=== PATIENT | male | born 1945 | race Caucasian/White ===

== ENCOUNTER → 2017-05-07 | Outpatient (CLI) | payer OTHER ==
[~2017-05-07] MED LIST: IOPAMIDOL (ISOVUE-300) 100 ML BTL ONE
== END ==
LOC: CIMAGING 10:47
PROVIDERS: ATTEND Specialist
DX: C67.9 Malignant neoplasm of bladder, unspecified (principal); R93.422 Abnormal radiologic findings on diagnostic imaging of left kidney
CPT/HCPCS: 71260-PO; 74177-PO; Q9967

== ENCOUNTER 2017-09-09 05:34 | Inpatient (IN) | payer OTHER ==
[2017-09-09] MEDS ORDERED: cefOXitin SODIUM 2 GM in NS 100 ML IV ONE (05:58)
[2017-09-09] MEDS ORDERED: LIDOCAINE 1% 2 ML INJ ID PRN (06:00)
[2017-09-09] MEDS ORDERED: LR 1,000 ML IV ONE (06:00)
[2017-09-09] MEDS ORDERED: MIDAZOLAM 2 MG/2 ML VIAL IVP ONE (06:59)
--- NOTE | 2017-09-09 06:59 | PDANEPAE ---
ANE History of Present Illness bladder CA ANE Past Medical History - Cardiovascular History Hx Hypertension: Yes Hx Arrhythmias: No Hx Chest Pain: No Hx Coronary Artery / Peripheral Vascular Disease: Yes Hx CHF / Valvular Disease: No Hx Palpitations: No Cardiovascular History Comment: DYSLIPIDEMIA, stent in 2011 - Pulmonary History Hx COPD: No Hx Asthma/Reactive Airway Disease: No Hx Recent Upper Respiratory Infection: No Hx Oxygen in Use at Home: No Hx Sleep Apnea: No Sleep Apnea Screening Result - Last Documented: Positive - Neurologic History Hx Cerebrovascular Accident: No Hx Seizures: No Hx Dementia: No Neurologic History Comment: NEUROPATHY LE - Endocrine History Hx Diabetes: Yes Endocrine History Comment: DM II, on Metformin - Renal History Hx Renal Disorders: Yes Renal History Comment: BLADDER CA, PROSTATE CA - Liver History Hx Hepatic Disorders: No - Neurological & Psychiatric Hx Hx Neurological and Psychiatric Disorders: No - Cancer History Hx Cancer: Yes Cancer History Comment: BLADDER CA (BCG INJ) 2010. PROSTATE CA (TURBT) 2011 - Congenital Disorder History Hx Congenital Disorders: No - GI History GERD: mild Hx Gastrointestinal Disorders: No - Other Health History Other Health History: ED. HEARING LOSS. NASAL DRIP. MISSING TEETH. PSORIASIS - FOOT. TORN ROTATOR CUFF R SHOULDER. ARTHRITIS - Chronic Pain History Chronic Pain: No - Surgical History Prior Surgeries: L3-5 TLIF 2013. LAMINOTOMY 2011. ANGIOPLASTY, CORONARY ARTERY STENT 2011. TURBT 2010. CARPAL TUNNEL RELEASE 2000, 2006. VASECTOMY. ING HERNIA REPAIR 1997 ANE Review of Systems Review of Systems: - Exercise capacity METS (RN): 5 METS ANE Patient History - Allergies Allergies/Adverse Reactions: No Known Allergies Allergy (Verified 09/09/17 06:43) - Home Medications Home medications: home medication list seen and reviewed Home Medications: Aspirin [Aspirin 81mg (OTC)] 81 mg PO DAILY 12/15/12 [Last Taken 08/31/17] Atorvastatin Calcium [Lipitor 20 mg (RX)] 20 mg PO DAILY18 12/15/12 [Last Taken 09/08/17] Bisoprolol Fumarate [Zebeta (RX)] 2.5 mg PO DAILY18 12/15/12 [Last Taken ] Magnesium Oxide [Magnesium Oxide 400 mg (OTC)] 800 mg PO DAILY 12/15/12 [Last Taken 09/06/17] Cholecalciferol Vit D3 [Vitamin D3 2000 units tab (OTC)] 2,000 units PO DAILY [Last Taken 09/06/17] Eszopiclone [Lunesta] 2 mg PO HS 08/20/17 [Last Taken 09/08/17] Lisinopril [Zestril 5 mg (*)] 5 - 10 mg PO DAILY18 08/20/17 [Last Taken 09/08/17 ] Polyethylene Glycol 3350 [Miralax 17 gm (*)] 17 gm PO HS 08/20/17 [Last Taken ] Vardenafil HCl [Levitra] 20 mg PO DAILY PRN 08/20/17 [Last Taken 09/05/17] metFORMIN SR [Glucophage XR 500 mg (*)] 500 mg PO DAILY18 08/20/17 [Last Taken 09/06/17] - NPO status NPO Since - Liquids (Date): 09/08/17 NPO Since - Liquids (Time): 22:00 NPO Since - Solids (Date): 09/08/17 NPO Since - Solids (Time): 12:00 - Smoking Hx Smoking Status: Former smoker - Family Anes Hx Family Hx Anesthesia Complications: NONE ANE Labs/Vital Signs - Vital Signs Blood Pressure: 124/74 Heart Rate: 71 Respiratory Rate: 16 O2 Sat (%): 93 Height: 180.34 cm Weight: 74.843 kg ANE Anesthesia Plan Anesthesia Plan: general endotracheal anesthesia
[2017-09-09] MEDS ORDERED: ONDANSETRON 4 MG/2 ML VIAL ONE (07:04)
[2017-09-09] MEDS ORDERED: LIDOCAINE 2% 5 ML SDV ONE (07:04)
[2017-09-09] MEDS ORDERED: PROPOFOL 200 MG/20 ML VIAL ONE (07:04)
[2017-09-09] MEDS ORDERED: GLYCOPYRROLATE 0.2 MG/1 ML VIAL ONE ×2 (07:04)
[2017-09-09] MEDS ORDERED: NEOSTIGMINE METHYLSULFATE 5 MG/5 ML SYR ONE (07:04)
[2017-09-09] MEDS ORDERED: fentaNYL 100 MCG/2 ML INJ ONE ×4 (07:04→11:38)
[2017-09-09] MEDS ORDERED: ROCURONIUM 50 MG/5 ML VIAL ONE ×2 (07:04→08:15)
[2017-09-09] MEDS ORDERED: MIDAZOLAM 2 MG/2 ML VIAL ONE (07:07)
[2017-09-09] MEDS ORDERED: MITOMYCIN INVES ONE ×2 (07:30→08:00)
--- NOTE | 2017-09-09 07:31 | PDHPUP ---
History & Physical Update H&P update statement: This history and physical update is based on an assessment of the patient which was completed after admission or registration (within 24 hours), but prior to the surgery/procedure. H&P update: no change in patient's condition since H&P completed
[2017-09-09] MEDS ORDERED: BUPIVACAINE/EPI 0.5% 30 ML SDV ONE (07:39)
--- NOTE | 2017-09-09 08:08 | POSTOPPROG ---
Post Op Note Date of Operation: 09/10/17 Surgeon: Heidy Figueroa (# [id number]) Anesthesia: GET(General Endotracheal) Pre-op Diagnosis: Bladder CA Post-op Diagnosis: Bladder CA Procedure: Robotic partial cystectomy + bilateral pelvic lymphadenectomy Findings: See op note Inf/Abcess present in the surg proc area at time of surgery?: No EBL: 50-100 (50 cc) Complications: None Specimen(s): 1. Partial bladder 2. Right & left PLND's
[2017-09-09] MEDS ORDERED: ePHEDrine SULFATE 25 MG/5 ML SYR ONE (08:15)
[2017-09-09] MEDS ORDERED: THROMBIN(HUM PLAS)/FIBRINOG/CA 2 ML VIAL TP ONE (09:59)
[2017-09-09] MEDS ORDERED: ONDANSETRON 4 MG/2 ML VIAL IVP PRN ×2 (10:36→11:27)
[2017-09-09] MEDS ORDERED: NALOXONE HCL 0.4 MG/ML INJ IVP PRN ×2 (10:36→11:29)
[2017-09-09] MEDS ORDERED: PROMETHAZINE HCL 25 MG/ML INJ IVP PRN ×2 (10:36→11:27)
[2017-09-09] MEDS ORDERED: KETOROLAC 30 MG/1 ML SDV ONE (10:50)
--- NOTE | 2017-09-09 11:15 | POSTANESTH ---
Post Anesthetic Evaluation Cardiovascular Status: Normal, Stable Respiratory Status: Normal, Stable Level of Consciousness/Mental Status: Can Participate in Eval, Alert and Oriented Pain Control: Adequate, Prn Tx Ordered Nausea/Vomiting Control: Adequate, Prn Tx Ordered Complications Possibly Related to Anesthesia: None Noted
[2017-09-09] MEDS: fentaNYL 100 MCG/2 ML INJ IVP PRN ×4 (11:16→11:50)
[2017-09-09] MEDS ORDERED: HYDROmorphONE/DILAUDID 6 MG/30 ML PCA IV PRN (11:29)
[2017-09-09] MEDS ORDERED: D50W 25 GM/50 ML SYR IVP PRN (11:31)
[2017-09-09] MEDS ORDERED: HYDROmorphONE/DILAUDID 1 MG/ML INJ ONE (11:38)
[2017-09-09] MEDS: HYDROmorphONE/DILAUDID 1 MG/ML INJ IVP PRN ×2 (11:40→11:50)
[2017-09-09] MEDS: NS 1,000 ML IV SCH (13:42)
--- NOTE | 2017-09-09 16:05 | PDMN ---
Medical Necessity Medical necessity: Pt meets inpt criteria per MD order and Urologic Surgery [facility] , Medicare inpt only surg, 4 days. Pt w/bladder Ca admitted for Robotic partial cystectomy, and bilat pelvic lymphadenectomy, anticipate>2MN for ongoing monitoring, eval, treatment.
[2017-09-09] MEDS: cefOXitin SODIUM 2 GM in NS 100 ML IV SCH (16:51)
[2017-09-09] MEDS: KETOROLAC 15 MG/1 ML SDV IVP SCH ×2 (17:30→18:33)
[2017-09-09] MEDS ORDERED: BISOPROLOL FUMARATE 5 MG TAB PO SCH (18:00)
[2017-09-09] MEDS ORDERED: LISINOPRIL 5 MG TAB PO SCH (18:00)
[2017-09-09] MEDS ORDERED: ATORVASTATIN CALCIUM 20 MG TAB PO SCH (18:00)
[2017-09-09] MEDS: INSULIN REGULAR HUMAN 100 UNIT/ML UNIT SC SCH ×2 (18:33→20:29)
[2017-09-09] MEDS ORDERED: ESZOPICLONE 2 MG PO SCH (21:00)
[2017-09-09] MEDS ORDERED: ZOLPIDEM TARTRATE 5 MG TAB PO SCH (21:00)
[2017-09-10] MEDS: NS 1,000 ML IV SCH (00:36)
[2017-09-10] MEDS: cefOXitin SODIUM 2 GM in NS 100 ML IV SCH ×2 (00:53→08:03)
[2017-09-10] MEDS: KETOROLAC 15 MG/1 ML SDV IVP SCH ×3 (00:53→12:18)
[2017-09-10] MEDS: INSULIN REGULAR HUMAN 100 UNIT/ML UNIT SC SCH ×3 (07:54→17:11)
[2017-09-10] MEDS ORDERED: HYDROCODONE/APAP 5/325 TAB PO PRN (13:22)
--- NOTE | 2017-09-10 13:24 | SOAPPROG ---
SOAP Progress Note Assessment/Plan: Assessment: POD 1 s/p robotic partial cystectomy + bilateral PLND - stable. Plan: Advance care. Possible d/c home w/ Lamb later today. Subjective: No complaints. + flatus, tolerating CLD. Objective: Vital Signs Temp Pulse Resp BP Pulse Ox 36.9 C 74 16 104/60 95 09/10/17 11:18 09/10/17 11:18 09/10/17 11:18 09/10/17 11:18 09/10/17 11:18 Laboratory Results 09/10/17 04:38 09/10/17 04:38 09/09/17 09/10/17 09/11/17 05:59 05:59 05:59 Intake Total 1120 Output Total 1200 175 Balance -80 -175 Physical Exam - Physical Exam General Appearance: WD/WN, alert, no apparent distress Abdomen: non-tender, soft, other (incisions c/d/i) Male Genitalia: other (urine clear via Lamb) Skin: normal color, warm/dry Extremities: non-tender, normal inspection Neuro/Psych: alert, normal mood/affect, oriented x 3 ICD10 Worksheet Patient Problems: Problems Problem Status Onset CAD - Coronary arteriosclerosis Active Diabetes mellitus Active Essential hypertension Active Hyperlipidemia Active Neoplasm of bladder Active Neoplasm of prostate Active
[2017-09-10 17:04] VITALS: BP 102/57
[2017-09-10] MEDS ORDERED: metFORMIN SR 500 MG TAB PO SCH (18:00)
--- NOTE | 2017-09-10 18:40 | GOP ---
[f rep st] OPERATIVE REPORT DATE OF OPERATION: 09/09/2017 SURGEON: Heidy Figueroa MD PROFESSIONAL ATHLETE: DIEGO Mason. ANESTHESIA: General endotracheal. PREOPERATIVE DIAGNOSIS: Muscle-invasive urothelial bladder cancer. POSTOPERATIVE DIAGNOSIS: Muscle-invasive urothelial bladder cancer. PROCEDURE PERFORMED: Robotically-assisted laparoscopic partial cystectomy and bilateral pelvic lymphadenectomy. FINDINGS: No gross evidence of locally-advanced cancer nor grossly positive adenopathy. SPECIMENS: 1. Bladder resection. 1. Right and left pelvic lymph node dissection. 2. ESTIMATED BLOOD LOSS: Approximately 50 cc. INDICATIONS: This gentleman has been recently treated for muscle-invasive bladder cancer with combination of transurethral bladder tumor resection and systemic chemotherapy. Subsequent studies have revealed no evidence of residual disease. He presents for operative partial resection of his bladder at this time. The indications for the procedures as well as potential risks and complications were discussed with the patient preoperatively. He appeared to understand, his questions were answered, and he wished to proceed. Written informed surgical consent was thereafter obtained. DESCRIPTION OF PROCEDURE: The patient was brought to the operating room and administered general endotracheal anesthesia. An orogastric tube was placed by Anesthesia and removed at the conclusion of the case. The patient was placed in the low lithotomy position with Jesus stirrups. The abdomen and genitalia were sterilely prepped and draped in standard fashion utilizing Ioban. A 20- [place] Lamb catheter was placed sterilely on the field to bag drainage without complication. I obtained intraabdominal access in the supraumbilical midline with a Veress needle and insufflated the abdomen to 15 mmHg pressure which was the pressure maintained throughout a majority of the surgery, and a 12 mm laparoscopic port was placed at this location. The intraabdominal cavity was then scanned with a 0-degree 12 mm robotic camera. No significant abnormalities were grossly seen. I then placed my remaining port sites which were as follows: An 8 mm robotic port placed in the left lower quadrant approximately 2 cm below the umbilicus and 12 cm lateral to the midline, an 8 mm robotic port placed 2 cm below the umbilicus and 7.5 cm lateral to the midline in the right lower quadrant, and a third 8 mm robotic port placed approximately 8 cm lateral to the right lower quadrant port and nearly in the same transverse line as the umbilicus, and a 12 mm clinical medical assistant port placed in the left upper quadrant along the edge of the lateral rectus muscle just below the costal margin. All these ports were placed under direct vision without complication. The patient was then placed in approximately 25 degrees Trendelenburg position and the robot was docked between the patient's legs. The appropriate robotic arms were then connected to the respective ports. The 0 -degree 12 mm camera was used throughout the robotic portion of the procedure. I then left the patient's bedside and entered the surgeon's robotic console. I began the robotic portion of procedure by incising the anterior peritoneum just lateral to the obliterated umbilical ligaments high along the anterior abdominal wall. These incisions through the anterior peritoneum were carried back towards the underlying vas deferens and spermatic cord. The obliterated umbilical ligaments were then ligated high along the anterior abdominal wall with bipolar cautery and divided with scissors in order to allow for entrance into the retropubic space of Retzius. The bladder was then mobilized with gentle sharp dissection. The posterior peritoneum was sharply dissected off the posterior bladder wall with scissors dissection. It should be mentioned that upon placement of the Lamb catheter, 40 mg of mitomycin-C in 80 cc of sterile fluid was placed into the bladder by way of the catheter, and the catheter was clamped. I then had my clinical medical assistant place approximately 150 cc of additional fluid into the bladder prior to opening the bladder. I then made an incision along the top of the bladder near the dome in the midline with monopolar scissors dissection. The contents within the bladder were evacuated with suction and the necessary precautions were taken in light of the mitomycin- C within the bladder (in terms of its disposal). The previous transurethral bladder resection site and secondary healing mucosal ulceration were identified. I excised this portion of the bladder along with a rim of normal- appearing tissue. This tissue was sent to Pathology for histologic examination. I then closed the bladder in 2 layers, starting with a running 3- 0 chromic suture to reapproximate the mucosa, followed by a 2-0 Vicryl to reapproximate the seromuscularis over the mucosa. The bladder was then filled to approximately 250 cc of sterile fluid, and no extravasation from the bladder closure was seen. This completed the partial cystectomy portion of the procedure. I then turned my attention to performing bilateral pelvic lymphadenectomy. The left side was performed first. I mobilized the lymphatic tissue immediately lateral and overlying the external iliac artery. I then carefully dissected this tissue free and continued the dissection medially and inferiorly until I was able to identify the external iliac vein, hypogastric vein, and the obturator nerve. All lymphatic tissue in this region was dissected free from the surrounding tissue and Hem-o-nimesh clips used liberally to ligate small lymphatics and vasculature. The allyson tissue was then collected in a specimen bag and submitted to Pathology for permanent histologic examination. An identical procedure was performed on the right side. There were no obvious abnormal lymph nodes seen grossly intraoperatively. At the conclusion of lymphadenectomy, each operative site bilaterally was hemostatic. The iliac vessels and obturator nerve were intact bilaterally. Nonetheless, I did place some Evicel in the regions of the lymphadenectomy bilaterally, approximately 3 cc on each side. The intraabdominal pressure was then temporarily reduced to 5 mmHg, and hemostasis was still present at all the operative sites. The pressure was then increased back to 15 mmHg. Because there was no fluid extravasation noted from the bladder with 250 cc placed, I decided not to place a Mike-Monterroso drain. This completed the robotic portion of procedure. I then returned to the patient's bedside. A fascial closure device and an 0 Vicryl suture were used to reapproximate the anterior rectus fascia at both of the 12 mm port sites. The remaining ports were then removed. All of the wounds were anesthetized with a total of 30 cc of 0.5% Marcaine with epinephrine. Once hemostasis of the subcutaneous tissue was confirmed, all the incisions were closed with a running 4-0 Monocryl subcuticular suture followed by application of Dermabond. The patient's indwelling Lamb catheter was kept to bag drainage. The patient was then awakened, extubated, transferred to his bed, then taken to the recovery room. He tolerated the procedure well overall. COMPLICATIONS: None. DISPOSITION: He was transferred to the recovery room in stable condition and will be admitted for postoperative care. /[id number]/MODL MTDD
--- NOTE | 2017-09-16 09:27 | GDS ---
[f rep st] DISCHARGE SUMMARY ADMISSION DIAGNOSIS: Bladder cancer. POSTOPERATIVE DIAGNOSIS: Bladder cancer. NAME OF PROCEDURE: Robotically-assisted laparoscopic partial cystectomy and bilateral pelvic lymphad enectomy on 09/09/2017. HOSPITAL COURSE: Refer to the operative report for details regarding the procedure. Postoperatively, the patient did well. His postoperative laboratory work was stable, vital signs wer e stable, and physical exam was unremarkable, and urine was relatively clear color within the Lamb c atheter. By postoperative day 1, the patient was ambulating, tolerating a regular diet, passing flat us, and otherwise ready for discharge. He is being discharged on his regular medications as well as [place] p.r.n. pain. He will maintain a Lamb catheter for 1 week postoperatively, then return with a cystogram in 1 week for hopeful removal. Pathology results were pending at the time of discharge. A ctivity restriction instructions have been reviewed with the patient as well. /[id number]/MODL
== END 2017-09-10 18:17 | disposition home or self-care (01) | DRG 655 ==
LOC: F3E 05:34 → F1N 12:37
PROVIDERS: ADMIT Specialist; ATTEND Specialist
PROC: 0TBB4ZZ Excision of Bladder, Percutaneous Endoscopic Approach (ICD-10-PCS; principal; 2017-09-09 07:15)
PROC: 07TC4ZZ Resection of Pelvis Lymphatic, Percutaneous Endoscopic Approach (ICD-10-PCS; principal; 2017-09-09 07:15)
PROC: 8E0W4CZ Robotic Assisted Procedure of Trunk Region, Percutaneous Endoscopic Approach (ICD-10-PCS; principal; 2017-09-09 07:15)
PROC: 3E0K705 Introduction of Other Antineoplastic into Genitourinary Tract, Via Natural or Artificial Opening (ICD-10-PCS; principal; 2017-09-09 07:15)
DX: C67.9 Malignant neoplasm of bladder, unspecified (principal); R33.9 Retention of urine, unspecified; R35.1 Nocturia; E11.9 Type 2 diabetes mellitus without complications; I25.2 Old myocardial infarction; I10 Essential (primary) hypertension; E78.5 Hyperlipidemia, unspecified; I25.10 Atherosclerotic heart disease of native coronary artery without angina pectoris; N52.9 Male erectile dysfunction, unspecified; Z85.46 Personal history of malignant neoplasm of prostate; Z79.82 Long term (current) use of aspirin; Z87.891 Personal history of nicotine dependence; Z92.21 Personal history of antineoplastic chemotherapy; Z80.42 Family history of malignant neoplasm of prostate; Z82.49 Family history of ischemic heart disease and other diseases of the circulatory system; Z95.5 Presence of coronary angioplasty implant and graft; Z98.1 Arthrodesis status
CPT/HCPCS: J0694; J1170; J1885; J2250; J2405; J2704; J2710; J3010; J9280

== ENCOUNTER 2018-03-20 03:20 | Emergency (ER) | payer OTHER ==
[2018-03-20] MEDS ORDERED: ASPIRIN 81 MG CHEWABLE TAB PO ONE (03:33)
[2018-03-20] MEDS ORDERED: NS 1,000 ML IV ONE (03:33)
--- NOTE | 2018-03-20 03:34 | EDPHY ---
H & P Stated Complaint: Chest Pain Time Seen by Provider: 03/20/18 03:34 HPI/ROS: HPI CHIEF COMPLAINT: Chest pain now resolved. HISTORY OF PRESENT ILLNESS: 73-year-old male, history of coronary artery disease with a stent to his circumflex in 2011, additionally hypertension, hyperlipidemia and diabetes presents emergency room with chest pain. Patient reports to me that he developed chest pain it woke him from sleep around 215 in the morning it is now 343 in the morning it has resolved it lasted 20 mins. The chest pain did not go anywhere. Denies any shortness of breath denies pleuritic pain. He had no nausea no diaphoresis no vomiting. He reports to me that 2011 when he had his IA and a stent to his circumflex he had similar symptoms. Currently this time upon arrival to the emergency room he has no chest pain. He is chest pain-free. Past Medical History: Coronary artery disease with a stent. Hypertension, hyperlipidemia Past Surgical History: Cardiac stent. Social History: Denies drugs alcohol tobacco. Family History: Noncontributory Linotype Machinist: Dr. Ed Bowden. ROS REVIEW OF SYSTEMS: 10 Systems were reviewed and negative with the exception of the elements mentioned in the history of present illness. Exam Constitutional triage nursing summary reviewed, vital signs reviewed, awake/ alert. Eyes normal conjunctivae and sclera, EOMI, PERRLA. HENT normal inspection, atraumatic, moist mucus membranes, no epistaxis, neck supple/ no meningismus, no raccoon eyes. Respiratory clear to auscultation bilaterally, normal breath sounds, no respiratory distress, no wheezing. Cardiovascular rate normal, regular rhythm, no murmur, no edema, distal pulses normal. Gastrointestinal soft, non-tender, no rebound, no guarding, normal bowel sounds, no distension, no pulsatile mass. Genitourinary no CVA tenderness. Musculoskeletal no midline vertebral tenderness, full range of motion, no calf swelling, no tenderness of extremities, no meningismus, good pulses, neurovascularly intact. Skin pink, warm, & dry, no rash, skin atraumatic. Neurologic awake, alert and oriented x 3, AAOx3, moves all 4 extremities equally, motor intact, sensory intact, CN II-XII intact, normal cerebellar, normal vision, normal speech. Psychiatric normal mood/affect. Heme/Lymph/Immune no lymphadenopathy. Differential Diagnosis: Differential diagnosis includes but is not limited to: ACS, atypical chest pain, pneumothorax, pneumonia, pulmonary embolism, aortic dissection, congestive heart failure, tumor, musculoskeletal pain, esophageal pain, GERD, peptic ulcer disease, pancreatitis Medical Decision Making: Plan for this patient IV establishment with IV fluid bolus, obtain EKG chest x-ray, full-dose aspirin, school lunch monitor, rule out acute coronary syndrome. Re-evaluation: EKG interpretation by me on record in [employer] system. Impression time of EKG 3:32 a.m., sinus rhythm rate of 73 appear interval 234 with no acute ischemic change EKG appears very similar to his previous EKG dated 10/11/2012 ED x-ray chest one view stable from previous chest x-ray. 4:[address] Wheeler reviewed the patient's EKG. It is similar to patient's previous EKG without acute ischemia today. The patient is chest pain- free Given the patient's cardiovascular risk factors which include his age, diabetes , hypertension, hyperlipidemia coronary artery disease with stent will admit to the hospitalist service for further cardiac evaluation. EKG is stable from previous EKG. Troponin is noted be negative. D-dimer negative. Plan for hospital admission for further cardiac evaluation and well. Patient accepts this. Dr. Wayne Agrees to admit. Updated patient agrees for admission. Chest x-ray reviewed does show an atherosclerotic aorta wide mediastinum. Will obtain a CT chest. Plan for admission. Patient is chest pain-free. CT angiogram of the chest was obtained due to chest pain, wide mediastinum on his chest x-ray, and atherosclerotic aorta visualized. Rule out aortic dissection rule Out pulmonary embolism. The patient agreed for this CT scan. The CT angiogram does not show any evidence of PE heart size is normal no pericardial effusion there are atherosclerotic calcifications of thoracic aorta but no dissection. Thoracic aorta and main pulmonary artery and normal caliber. This was faxed to me by direct Radiology at time 5:59 a.m.. Source: Patient - Personal History Tetanus Vaccine Date: 2009 - Medical/Surgical History Hx Asthma: No Hx Chronic Respiratory Disease: No Hx Diabetes: Yes Hx Cardiac Disease: No Hx Renal Disease: No Hx Cirrhosis: No Hx Alcoholism: No Hx HIV/AIDS: No Hx Splenectomy or Spleen Trauma: No Other PMH: misbah hernia repair, carpal tunnel repair, lamectomy, major back surgery, cardiac stent - Social History Smoking Status: Former smoker Constitutional: Initial Vital Signs Temperature (C) 36.5 C 03/20/18 03:24 Heart Rate 80 03/20/18 03:24 Respiratory Rate 18 03/20/18 03:24 Blood Pressure 149/88 H 03/20/18 03:24 O2 Sat (%) 97 03/20/18 03:24 O2 Delivery Mode Room Air Allergies/Adverse Reactions: No Known Allergies Allergy (Verified 09/09/17 06:43) Home Medications: Medication Instructions Recorded Atorvastatin Calcium [Lipitor 20 20 mg PO HS 12/15/12 mg (*)] Bisoprolol Fumarate [Zebeta (*)] 2.5 mg PO HS 12/15/12 Magnesium Oxide [Magnesium Oxide 400 mg PO DAILY 12/15/12 400 mg (*)] Cholecalciferol Vit D3 [Vitamin D3 2,000 units PO DAILY 08/20/17 2000 units tab (OTC)] Eszopiclone [Lunesta] 1 - 2 mg PO HS PRN 08/20/17 Polyethylene Glycol 3350 [Miralax 17 gm PO DAILY PRN 08/20/17 17 gm (*)] Vardenafil HCl [Levitra] 20 mg PO DAILY PRN 08/20/17 metFORMIN SR [Glucophage XR 500 mg 500 mg PO HS 08/20/17 (*)] Aspirin EC [Aspirin EC 81 mg (*)] 81 mg PO DAILY 03/20/18 Lisinopril [Zestril 10 mg (*)] 10 mg PO HS 03/20/18 Medical Decision Making - Data Points Laboratory Results: Laboratory Results 03/20/18 03:35 03/20/18 03:35 Medications Given: Discontinued Medications Aspirin (Aspirin) 324 mg PO EDNOW ONE Stop: 03/20/18 03:34 Last Admin: 03/20/18 03:40 Dose: 324 mg Sodium Chloride (Ns) 1,000 mls @ 0 mls/hr IV EDNOW ONE; Wide Open PRN Reason: Protocol Stop: 03/20/18 03:34 Last Admin: 03/20/18 03:40 Dose: 1,000 mls Point of Care Test Results: Chemistry 03/20/18 03:37 POC Troponin I 0.01 ng/mL ng/mL (0.00-0.08) Departure - Departure Disposition: [facility] Acute Clinical Impression: Chest pain Qualifiers: Chest pain type: unspecified Qualified Code(s): R07.9 - Chest pain, unspecified Condition: Good
[2018-03-20 03:49] LABS: PLATELET COUNT 213 10^3/uL (150-400)
[2018-03-20 03:59] LABS: INR 0.98 (0.83-1.16); PROTIME(PATIENT) 13.2 SEC (12.0-15.0)
[2018-03-20] MEDS ORDERED: ONDANSETRON DISINTEGRATING 4 MG TAB PO PRN (05:12)
[2018-03-20] MEDS ORDERED: ACETAMINOPHEN 325 MG TAB PO PRN (05:12)
[2018-03-20] MEDS ORDERED: HYDROCODONE/APAP 5/325 TAB PO PRN (05:12)
[2018-03-20] MEDS ORDERED: ONDANSETRON 4 MG/2 ML VIAL IVP PRN (05:12)
[2018-03-20] MEDS ORDERED: IOHEXOL 300 mgI/ML (OMNIPAQUE) 150 ML BTL IV ONE (05:12)
--- NOTE | 2018-03-20 08:53 | PDGENHP ---
History and Physical - Chief Complaint Chest pain - History of Present Illness Source-patient provides history appears reliable. EMR was reviewed and case discussed with ED provider. HPI-This a very pleasant 73-year-old gentleman with past medical history significant for CAD with stent in the left circumflex in 1999 12, HTN, HLD, neuropathy related to spinal stenosis, history of bladder cancer in remission, dm 2 who presents emergency department today with complaints left-sided chest pain that woke him up from sleep. Patient reports pain lasts approximately 20 min but he had difficulties getting comfortable. He noted that at home when he woke up he felt a little tremulous and slightly anxious. He denies any shortness of breath associated with this no nausea vomiting abdominal pain. No radiation of his chest pain. Patient also notes that his heart rate was slightly elevated in the 90s and his blood pressure elevated 160s over 80s. Patient denies any family history of early AZ but does have a family history of CAD. Patient reports that he exercises and goes to derm 3 times weekly for approximately 30-60 minutes. He does walking but also stair climber for approximately 30 min at a time each session. He he has not recently had any similar pains during his exercise. Patient is concerned however because his current pains appears similar to that experienced during his AZ in 2011. History Information - Allergies/Home Medication List Allergies/Adverse Reactions: No Known Allergies Allergy (Verified 09/09/17 06:43) Home Medications: Atorvastatin Calcium [Lipitor 20 mg (*)] 20 mg PO HS 12/15/12 [Last Taken ] Bisoprolol Fumarate [Zebeta (*)] 2.5 mg PO HS 12/15/12 [Last Taken 03/19/18] Magnesium Oxide [Magnesium Oxide 400 mg (*)] 400 mg PO DAILY 12/15/12 [Last Taken 03/19/18] Cholecalciferol Vit D3 [Vitamin D3 2000 units tab (OTC)] 2,000 units PO DAILY [Last Taken 03/19/18] Eszopiclone [Lunesta] 1 - 2 mg PO HS PRN 08/20/17 [Last Taken 03/19/18 1mg] Polyethylene Glycol 3350 [Miralax 17 gm (*)] 17 gm PO DAILY PRN 08/20/17 [Last Taken 03/19/18] Vardenafil HCl [Levitra] 20 mg PO DAILY PRN 08/20/17 [Last Taken 03/13/18] metFORMIN SR [Glucophage XR 500 mg (*)] 500 mg PO HS 08/20/17 [Last Taken ] Aspirin EC [Aspirin EC 81 mg (*)] 81 mg PO DAILY 03/20/18 [Last Taken 03/19/18] Lisinopril [Zestril 10 mg (*)] 10 mg PO HS 03/20/18 [Last Taken 03/19/18] I have personally reviewed and updated: family history, medical history, social history, surgical history - Past Medical History coronary artery disease, cancer (Bladder cancer status post resection and chemotherapy), diabetes type 2, hypertension, hyperlipidemia Additional medical history: 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 He is retired. Cor status-full. Review of Systems Review of Systems: ROS: 10pt was reviewed & negative except for what was stated in HPI & below Muscolosketal: Reports: back pain Neurological: Reports: other (Neuropathy, atrophy bilateral lower extremity leg) Physical Exam Physical Exam: Temp Pulse Resp BP Pulse Ox 36.8 C 70 16 119/71 97 03/20/18 08:00 03/20/18 08:00 03/20/18 08:00 03/20/18 08:00 03/20/18 08:00 Constitutional: no apparent distress, other (NAD. Pleasant adult gentleman is lying comfortably in bed. He is awake and pleasant cooperative.) Eyes: PERRL, anicteric sclera, EOMI, other (Glass), No scleral injection Ears, Nose, Mouth, Throat: dry mucous membranes, other (No nasal discharge), No poor dentition Cardiovascular: regular rate and rhythym (Slow slightly distant heart sounds.), no murmur, rub, or gallop, systolic murmur, pulses symmetric bilaterally, No edema Peripheral Pulses: 1+: dorsalis-pedis (R), dorsalis-pedis (L) Respiratory: no respiratory distress, no rales or rhonchi, clear to auscultation , No expiratory wheeze, No inspiratory crackles, No respiratory distress Gastrointestinal: normoactive bowel sounds, soft, non-tender abdomen, no palpable masses, No distension Genitourinary: no bladder tenderness, No russo in urethra Skin: warm, normal color, no rashes or abrasions Musculoskeletal: other (Atrophy patient is able to sit up independently.) Neurologic: AAOx3, sensation intact bilaterally, other (Grossly nonfocal exam), No facial droop Psychiatric: interacting appropriately, not anxious, not encephalopathic, thought process linear Lab Data & Imaging Review 03/20/18 03:35 03/20/18 03:35 WBC 5.14 10^3/uL (3.80-9.50) 03/20/18 03:35 RBC 4.41 10^6/uL (4.40-6.38) 03/20/18 03:35 Hgb 14.1 g/dL (13.7-17.5) 03/20/18 03:35 Hct 42.1 % (40.0-51.0) 03/20/18 03:35 MCV 95.5 fL (81.5-99.8) 03/20/18 03:35 MCH 32.0 pg (27.9-34.1) 03/20/18 03:35 MCHC 33.5 g/dL (32.4-36.7) 03/20/18 03:35 RDW 13.3 % (11.5-15.2) 03/20/18 03:35 Plt Count 213 10^3/uL (150-400) 03/20/18 03:35 MPV 9.8 fL (8.7-11.7) 03/20/18 03:35 Neut % (Auto) 52.1 % (39.3-74.2) 03/20/18 03:35 Lymph % (Auto) 36.4 % (15.0-45.0) 03/20/18 03:35 Sampson % (Auto) 10.1 % (4.5-13.0) 03/20/18 03:35 Eos % (Auto) 0.0 % (0.6-7.6) L 03/20/18 03:35 Baso % (Auto) 1.2 % (0.3-1.7) 03/20/18 03:35 Nucleat RBC Rel Count 0.0 % (0.0-0.2) 03/20/18 03:35 Absolute Neuts (auto) 2.68 10^3/uL (1.70-6.50) 03/20/18 03:35 Absolute Lymphs (auto) 1.87 10^3/uL (1.00-3.00) 03/20/18 03:35 Absolute Monos (auto) 0.52 10^3/uL (0.30-0.80) 03/20/18 03:35 Absolute Eos (auto) 0.00 10^3/uL (0.03-0.40) L 03/20/18 03:35 Absolute Basos (auto) 0.06 10^3/uL (0.02-0.10) 03/20/18 03:35 Absolute Nucleated RBC 0.00 10^3/uL (0-0.01) 03/20/18 03:35 Immature Gran % 0.2 % (0.0-1.1) 03/20/18 03:35 Immature Gran # 0.01 10^3/uL (0.00-0.10) 03/20/18 03:35 PT 13.2 SEC (12.0-15.0) 03/20/18 03:35 INR 0.98 (0.83-1.16) 03/20/18 03:35 APTT 32.5 SEC (23.0-38.0) 03/20/18 03:35 D-Dimer 0.44 ug/mLFEU (0.00-0.50) 03/20/18 03:35 Sodium 136 mEq/L (135-145) 03/20/18 03:35 Potassium 4.0 mEq/L (3.5-5.2) 03/20/18 03:35 Chloride 104 mEq/L (97-110) 03/20/18 03:35 Carbon Dioxide 24 mEq/l (22-31) 03/20/18 03:35 Anion Gap 8 mEq/L (6-14) 02/03/19 03:35 BUN 31 mg/dL (7-23) H 03/20/18 03:35 Creatinine 1.1 mg/dL (0.7-1.3) 03/20/18 03:35 Estimated GFR > 60 03/20/18 03:35 Glucose 124 mg/dL (70-100) H 03/20/18 03:35 Calcium 9.6 mg/dL (8.5-10.4) 03/20/18 03:35 POC Troponin I 0.01 ng/mL (0.00-0.08) 03/20/18 07:54 Troponin I < 0.012 ng/mL (0.000-0.034) 03/20/18 08:00 NT-Pro-B Natriuret Pep 36 pg/mL (0-450) 03/20/18 03:35 EKG additional interpertation: NSR in the 70s. QTC of 428. Less than [address] elevation in anterior leads. Stable findings compared to previous EKGs. No acute ST changes otherwise. Assessment & Plan Assessment: This a very pleasant 73-year-old gentleman with past medical history significant for CAD with stent in the left circumflex in 2000 01, HTN, HLD, neuropathy related to spinal stenosis, history of bladder cancer in remission, dm 2 who presents emergency department today with complaints left-sided chest pain #Chest pain (Acute) - patient HEART score 5. Cardiology was consulted from the emergency department in setting of minimal ST changes. They recommend admission for serial enzymes and consideration for a stress test. Patient reports that he would be able to do a treadmill. Per protocol treadmill with the nuclear medicine is stresses been ordered. Patient currently chest pain- free. Nitroglycerin p.r.n.. # CAD - continue statin, Bb, ACEI #HLD - continue statin. #benign essential HTN - continue #DM II - continue metformin. #chronic back pain - supportive care. tylenol prn. FEN - NPO pending stress. PPX - SCDs if tolerated. COR - FULL Dispo - Patient admitted to observation on PCU floor.
[2018-03-20 13:56] VITALS: BP 118/78
--- NOTE | 2018-03-20 22:15 | ASMTLACE ---
LACE Length of stay for Answers: Less than 1 day current admission Acuity / Level of Answers: No Care: Did the patient have an inpatient admission? Comorbidities - select Answers: Any tumor (including all that apply lymphoma or leukemia) Coronary Artery Disease Diabetes (uncontrolled or controlled) Other Notes: HTN, HLD neuropathy, prior stent placement # of Emergency department Answers: 1-2 visits in the last 6 months Score: 7 Date Signed: 03/20/2018 10:14 PM Electronically Signed By:Karli Napier RN
--- NOTE | 2018-03-20 22:19 | ASDISCHSUM ---
Discharge Information Plan Status:Home with No Needs Medically Cleared to Leave:03/19/2018 Discharge Date:03/19/2018 CM D/C Disposition:Home, Routine, Self-Care ADT D/C Disposition:Home, Routine, Self-Care Projected Discharge Date:03/19/2018 Transportation at D/C:Family Discharge Delay Reason: Follow-Up Date:03/19/2018 Discharge Slot:2 - 12:01 pm - 18:00 pm Final Diagnosis:Chest pain, CAD w/ prior stent, HTN, HLD, DM type 2, neuropathy, hx bladder ca Placement Information Patient Contact Information Contact Name:DAVE Relationship: Address:[address] City:[place] Alternate Phone: [facility]/Zip Code:[place] [address] Email: Financial Information Financial Class:[employer] Primary Plan Desc:[facility] [place] [facility] [place] OPEN ACCESS Primary Plan Number:[id number] Secondary Plan Desc:MEDICARE 2NDARY PFS USE Secondary Plan Number:[id number] Assessment Information LACE LACE Length of stay for Answers: Less than 1 day current admission Acuity / Level of Answers: No Care: Did the patient have an inpatient admission? Comorbidities - select Answers: Any tumor (including all that apply lymphoma or leukemia) Coronary Artery Disease Diabetes (uncontrolled or controlled) Other Notes: HTN, HLD neuropathy, prior stent placement # of Emergency department Answers: 1-2 visits in the last 6 months Score: 7 Date Signed: 03/20/2018 10:14 PM Electronically Signed By:Karli Napier RN [facility] Progress Note CM Alex JAMIL Note Notes: Reviewed chart. Pt admitted for chest pain. History includes CAD with prior stent placement, HTN, HLD, neuropathy, bladder cancer (in remission), diabetes type II. Pt is and lives with his in [place]. Per MD notes, pt to discharge home independently with family support and no identified needs. No PT/OT orders. No IM/WAGNER forms signed, not applicable. Pt to follow up as directed. CM available for any further issues or concerns. Discharge Plan: Home independently with family support Date Signed: 03/20/2018 10:19 PM Electronically Signed By:Karli Napier RN Intervention Information
--- NOTE | 2018-03-21 05:23 | GDS ---
[f rep st] DISCHARGE SUMMARY DISCHARGE DIAGNOSES: 1. Chest pain, resolved. 2. Coronary artery disease. 3. Hyperlipidemia. 4. Hypertension. 5. Type 2 diabetes mellitus. IMAGING/PROCEDURES: CT pulmonary angiogram March 20, 2018, is negative for pulmonary embolism, and also showed clear lungs with no acute abnormalities. HISTORY OF DETAILS: Please see history and physical dated March 20, 2018. In brief, Mr. Warner is a 73-year-old male with history of coronary artery disease and hyperlipidemia, [facility]. He was admitted to the hospital for further management. HOSPITAL COURSE: The patient admitted to the progressive care unit and given a HEART score of 5 for inpatient risk stratification. He had serial troponins, which were negative x3. His BNP was normal. CT was negative for PE. He underwent stress test, which was reported to be negative for any eviden ce of acute ischemia. I received this report from the ED physician, who spoke directly with the card iologist, though I do not have the final report to read in [facility]. Based on this verbal report fro Cardiology, the patient was reassured his stress test was negative. His chest pain had completely resolved, and he was deemed stable for discharge home with close outpatient followup. DISPOSITION: Patient is discharged home in stable condition. FOLLOWUP: 1. Dr. Sandee Cash, primary care. 2. Dr. Deo Hernández, cardiology. DISCHARGE MEDICATIONS: There are no new medications on discharge. He will continue all other outpat ient medications as previously prescribed with the exception that he will hold metformin for 72 hours given that he received contrast dye with his CT pulmonary angiogram. He can resume this in 72 hours and follow up with his primary care physician as instructed. /[id number]/MODL
== END 2018-03-20 13:55 | disposition home or self-care (01) ==
LOC: UNDOADMOB 04:47
DX: R07.9 Chest pain, unspecified (principal); I25.10 Atherosclerotic heart disease of native coronary artery without angina pectoris; I10 Essential (primary) hypertension; E11.9 Type 2 diabetes mellitus without complications
CPT/HCPCS: 84484-ER; Q9967

== ENCOUNTER 2018-04-07 13:26 | Day surgery (SDC) | payer OTHER ==
[2018-04-07] MEDS ORDERED: LIDOCAINE 1% 2 ML INJ ID PRN (13:48)
[2018-04-07] MEDS ORDERED: LR 1,000 ML IV ONE (13:48)
[2018-04-07] MEDS ORDERED: levOFLOXACIN 500 MG/DEXTROSE 100 ML IV ONE (13:48)
[2018-04-07] MEDS ORDERED: MIDAZOLAM 2 MG/2 ML VIAL IVP ONE (16:14)
--- NOTE | 2018-04-07 16:14 | PDANEPAE ---
ANE Past Medical History - Cardiovascular History Hx Hypertension: Yes Hx Arrhythmias: No Hx Chest Pain: No Hx Coronary Artery / Peripheral Vascular Disease: Yes Hx CHF / Valvular Disease: No Hx Palpitations: No Cardiovascular History Comment: DYSLIPIDEMIA, stent in 2011 - Pulmonary History Hx COPD: No Hx Asthma/Reactive Airway Disease: No Hx Recent Upper Respiratory Infection: No Hx Oxygen in Use at Home: No Hx Sleep Apnea: No Sleep Apnea Screening Result - Last Documented: Positive - Neurologic History Hx Cerebrovascular Accident: No Hx Seizures: No Hx Dementia: No Neurologic History Comment: NEUROPATHY LE - Endocrine History Hx Diabetes: No Endocrine History Comment: DM II, on Metformin - Renal History Hx Renal Disorders: No Renal History Comment: BLADDER CA, PROSTATE CA - Liver History Hx Hepatic Disorders: No - Neurological & Psychiatric Hx Hx Neurological and Psychiatric Disorders: Yes Neurological / Psychiatric History Comment: neuropathy LLE ? root nerve damage. foot drop on left. balance issues - Cancer History Hx Cancer: Yes Cancer History Comment: BLADDER CA (BCG INJ) 2010. PROSTATE CA (TURBT) 2011 - Congenital Disorder History Hx Congenital Disorders: No - GI History Hx Gastrointestinal Disorders: No - Other Health History Other Health History: ED. HEARING LOSS. NASAL DRIP. MISSING TEETH. PSORIASIS - FOOT. TORN ROTATOR CUFF R SHOULDER. ARTHRITIS. left shoulder unable to raise arm - Chronic Pain History Chronic Pain: No - Surgical History Prior Surgeries: L3-5 TLIF 2012. LAMINOTOMY 2011. ANGIOPLASTY, CORONARY ARTERY STENT 2011. TURBT 2010. CARPAL TUNNEL RELEASE 2000, 2006. VASECTOMY. ING HERNIA REPAIR 1997. 09/01 partial cytectomy ANE Review of Systems Review of Systems: - Exercise capacity METS (RN): 5 METS ANE Patient History - Allergies Allergies/Adverse Reactions: No Known Allergies Allergy (Verified 04/06/18 14:39) - Home Medications Home Medications: Atorvastatin Calcium [Lipitor 20 mg (*)] 20 mg PO HS 12/15/12 [Last Taken 1 Day Ago ~04/06/18] Bisoprolol Fumarate [Zebeta (*)] 2.5 mg PO HS 12/15/12 [Last Taken 1 Day Ago ~] Magnesium Oxide [Magnesium Oxide 400 mg (*)] 400 mg PO DAILY 12/15/12 [Last Taken 1 Day Ago ~04/06/18] Cholecalciferol Vit D3 [Vitamin D3 2000 units tab (OTC)] 2,000 units PO DAILY [Last Taken 1 Day Ago ~04/06/18] Eszopiclone [Lunesta] 1 - 2 mg PO HS PRN 08/20/17 [Last Taken 1 Day Ago ~] Vardenafil HCl [Levitra] 20 mg PO DAILY PRN 08/20/17 [Last Taken 04/03/18] metFORMIN SR [Glucophage XR 500 mg (*)] 500 mg PO DAILY18 08/20/17 [Last Taken 1 Day Ago ~04/06/18] Aspirin EC [Aspirin EC 81 mg (*)] 81 mg PO DAILY 03/20/18 [Last Taken 1 Week Ago ~03/31/18] Lisinopril [Zestril 5 mg (*)] 5 mg PO DAILY 04/01/18 [Last Taken 1 Day Ago ~] - NPO status NPO Since - Liquids (Date): 04/07/18 NPO Since - Liquids (Time): 09:30 NPO Since - Solids (Date): 04/07/18 NPO Since - Solids (Time): 06:00 - Smoking Hx Smoking Status: Former smoker - Family Anes Hx Family Hx Anesthesia Complications: NONE ANE Labs/Vital Signs - Vital Signs Blood Pressure: 124/76 Heart Rate: 72 Respiratory Rate: 18 O2 Sat (%): 93 Height: 180.34 cm Weight: 77.111 kg ANE Physical Exam - Airway Neck exam: FROM - Pulmonary Pulmonary: no respiratory distress - Cardiovascular Cardiovascular: regular rate and rhythym - ASA Status ASA Status: II ANE Anesthesia Plan Anesthesia Plan: general endotracheal anesthesia
[2018-04-07] MEDS ORDERED: MIDAZOLAM 2 MG/2 ML VIAL ONE (16:17)
[2018-04-07] MEDS ORDERED: fentaNYL 100 MCG/2 ML INJ ONE ×2 (16:21)
[2018-04-07] MEDS ORDERED: LIDOCAINE 2% JELLY 20 ML (UROJECT) ONE (16:25)
[2018-04-07] MEDS ORDERED: PROPOFOL 200 MG/20 ML VIAL ONE (16:26)
[2018-04-07] MEDS ORDERED: ROCURONIUM 50 MG/5 ML VIAL ONE (17:24)
[2018-04-07] MEDS ORDERED: DEXAMETHASONE 4 MG/ML VIAL ONE (17:24)
[2018-04-07] MEDS ORDERED: SUGAMMADEX SODIUM 200 MG/2 ML VIAL IVP ONE (17:25)
--- NOTE | 2018-04-07 17:54 | POSTOPPROG ---
Post Op Note Date of Operation: 04/07/18 Surgeon: Heidy Figueroa (# [id number]) Anesthesia: LMA Pre-op Diagnosis: Urethral & bladder tumors Post-op Diagnosis: Urethral & bladder tumors Procedure: TUR of urethral and bladder tumors Findings: See op note Inf/Abcess present in the surg proc area at time of surgery?: No EBL: Minimal Complications: None Specimen(s): 1. Urethral tumor 2. Posterior bladder biopsies 3. Anterior bladder biopsies
[2018-04-07] MEDS ORDERED: fentaNYL 100 MCG/2 ML INJ IVP PRN (18:22)
[2018-04-07] MEDS ORDERED: ONDANSETRON 4 MG/2 ML VIAL IVP PRN (18:22)
[2018-04-07] MEDS ORDERED: NALOXONE HCL 0.4 MG/ML INJ IVP PRN (18:22)
[2018-04-07] MEDS ORDERED: ALBUTEROL 3 ML DEYVIAL IH PRN (18:22)
--- NOTE | 2018-04-07 18:22 | POSTANESTH ---
Post Anesthetic Evaluation Cardiovascular Status: Similar to Pre-Op Cond Respiratory Status: Similar to Pre-op Cond. Level of Consciousness/Mental Status: Alert and Oriented Pain Control: Adequate, Prn Tx Ordered Nausea/Vomiting Control: Adequate, Prn Tx Ordered Complications Possibly Related to Anesthesia: None Noted
--- NOTE | 2018-04-07 19:12 | GOP ---
[f rep st] OPERATIVE REPORT DATE OF OPERATION: 04/07/2018 SURGEON: Heidy Figueroa MD ANESTHESIA: Laryngeal mask. PREOPERATIVE DIAGNOSIS: 1. Distal prostatic urethral tumor. 2. Bladder lesions with history of muscle invasive bladder cancer (approximately 3 cm collectively). POSTOPERATIVE DIAGNOSIS: 1. Approximately 1.5 cm urethral tumor. 2. Bladder lesions with history of muscle invasive bladder cancer (approximately 3 cm collectively). PROCEDURE PERFORMED: 1. Transurethral resection of urethral tumor. 2. Transurethral biopsies and fulguration of 3 cm bladder lesions. FINDINGS: 1. Papillary tumor involving the floor, the urethra, along with the distal prostate. 2. Slightly increased erythematous bladder lesions, as detailed in the body of the operative report. SPECIMENS: 1. Urethral tumor. 2. Posterior bladder biopsies. 1. Anterior bladder biopsies. 3. ESTIMATED BLOOD LOSS: Minimal. INDICATIONS: This gentleman has a history of muscle invasive bladder cancer for which he underwent p rior partial cystectomy and systemic chemotherapy. He was recently noted on surveillance cystoscopy to have questionable papillary mucosal changes of the distal prostatic urethra, along with a couple o f areas in his bladder of slightly increased erythema. He presents for operative management at this time. The indications for the procedures, as well as potential risks and complications were discusse d with the patient preoperatively. He appeared to understand, his questions were answered, and he wi shed to proceed. Written informed surgical consent was thereafter obtained. DESCRIPTION OF PROCEDURE: The patient was brought to the operating room and administered laryngeal m ask anesthesia. He was carefully placed in the dorsal lithotomy position on the cystoscopic table. The genital area was sterilely prepped with Betadine scrub and paint, then draped in the usual steril e fashion. Cystoscopy was initially performed with a 30-degree lens through 30 degree and 70-degree lenses through a 22-Serbian sheath. Anterior urethra was unremarkable. Posterior urethra revealed th e above-mentioned papillary lesions involving the most distal aspect of the prostatic urethra. The l esion involved the verumontanum and areas immediately lateral to the verumontanum on each side of the urethral floor. This area of abnormality encompassed approximately 1.5 cm of the floor of the dista l prostatic urethra. The remainder of the prostatic urethra was unremarkable. A thorough examinatio n of the bladder revealed a couple of areas of slightly increased erythema involving focal areas stephanie g the posterior midline of the bladder and the anterior midline of the bladder. Collectively, these abnormal erythematous lesions measured approximately 3 cm in diameter. The bladder was otherwise mod erately trabeculated, but no other giovanna tumors were identified. Ureteral orifices were normal in re romero to shape and position along the trigone. I then inserted the 26-Serbian resectoscopic sheath, along with the Lopez resectoscope and a standa rd loop. Using normal saline, I carefully resected the urethral lesion. It should be mentioned that I did note the location of the external sphincter grossly to be at least 1 cm distal to the location of the urethral tumor in question. I was able to resect the tumor and also included resection of th e verumontanum. All this resected tissue was removed and sent to pathology labeled as urethral tumor . I then used a button electrode to thoroughly cauterize the base of the resected region along the f zackery of the urethra at the level of the distal prostate. Hemostasis of this region was present at th is point. I then turned my attention to performing biopsies of the bladder lesions. This was done through the cystoscope using flexible biopsy forceps. I then reinserted the resectoscopic instruments, along wit h a button electrode, and cauterized the biopsy areas within the bladder. At the conclusion of the p rocedure, there were no other abnormal areas visualized within the bladder, the bladder was hemostati c, no gross perforation of the bladder had ensued as a result of the operative process, and the prost atic urethra remained hemostatic. The instruments were removed and an 18-Serbian coude tip Lamb cath eter inserted with return of completely clear fluid. 15 cc of sterile water was placed in the balloo n. The catheter was irrigated manually and the return was completely clear. The catheter was connec raghu to bag drainage. The patient was then awakened, transferred to his bed, then taken to the recove ry room. He tolerated the procedure well overall. COMPLICATIONS: None. DISPOSITION: He was transferred to the recovery room in stable condition and will be given instructi ons to remove the Lamb catheter on Wednesday. /[id number]/MODL
[2018-04-07 19:51] VITALS: BP 123/67
== END 2018-04-07 19:36 | disposition home or self-care (01) ==
LOC: F3N 13:26 → UNDOADMOB 13:26 → FSGY 13:26 → EDSTATUS 15:30 → F1N 18:07 → F3N 18:07 → FSGY 19:36 → UNDODISOB 19:36
PROVIDERS: ATTEND Specialist
DX: D09.0 Carcinoma in situ of bladder (principal); N36.2 Urethral caruncle; R31.0 Gross hematuria; R35.1 Nocturia; R33.9 Retention of urine, unspecified; E11.42 Type 2 diabetes mellitus with diabetic polyneuropathy; G62.9 Polyneuropathy, unspecified; I25.10 Atherosclerotic heart disease of native coronary artery without angina pectoris; N52.9 Male erectile dysfunction, unspecified; I25.2 Old myocardial infarction; I10 Essential (primary) hypertension; E78.5 Hyperlipidemia, unspecified; Z79.82 Long term (current) use of aspirin; Z85.51 Personal history of malignant neoplasm of bladder; Z85.46 Personal history of malignant neoplasm of prostate; Z87.891 Personal history of nicotine dependence; Z92.21 Personal history of antineoplastic chemotherapy; Z80.42 Family history of malignant neoplasm of prostate; Z95.5 Presence of coronary angioplasty implant and graft; Z82.49 Family history of ischemic heart disease and other diseases of the circulatory system; Z98.1 Arthrodesis status
CPT/HCPCS: J1100; J1956; J2250; J2704; J3010

== ENCOUNTER 2018-07-10 09:18 | Emergency (ER) | payer OTHER ==
--- NOTE | 2018-07-10 11:09 | EDPHY ---
H & P Stated Complaint: pt had large amount of blood in urine x4, had bladder procedure 5 days ago Time Seen by Provider: 07/10/18 09:51 HPI/ROS: CHIEF COMPLAINT: Hematuria HISTORY OF PRESENT ILLNESS: 73-year-old male with bladder cancer presents with gross hematuria. He is currently undergoing chemotherapy for a recurrent bladder cancer. Onset of cloudy urine 10 days ago. Urinalysis was positive for Staph epidermidis, sensitive to tetracycline. He was placed on doxycycline and started doxycycline 5 days ago. Onset of gross hematuria and urinary frequency this morning. The urine is red and there are blood clots present. More active than usual yesterday, walked 3 miles. No fever, abd/flank pain or dysuria. REVIEW OF SYSTEMS: complete 10 point ROS reviewed and is negative except for the noted elements in the HPI - Personal History Current Tetanus Diphtheria and Acellular Pertussis (TDAP): Yes Tetanus Vaccine Date: 2009 - Medical/Surgical History Hx Asthma: No Hx Chronic Respiratory Disease: No Hx Diabetes: No Hx Cardiac Disease: No Hx Renal Disease: No Hx Cirrhosis: No Hx Alcoholism: No Hx HIV/AIDS: No Hx Splenectomy or Spleen Trauma: No Other PMH: misbah hernia repair, carpal tunnel repair, lamectomy, major back surgery, cardiac stent, bladder CA - Social History Smoking Status: Former smoker - Physical Exam Exam: General Appearance: Alert, pleasant Eyes: Pupils equal and round, no conjunctival pallor ENT, Mouth: Mucous membranes moist Neck: Normal inspection Respiratory: Lungs are clear to auscultation Cardiovascular: Regular rate and rhythm Gastrointestinal: Abdomen is soft and nontender Neurological: A&O, nonfocal, normal gait Skin: Warm and dry Extremities: Normal inspection Psychiatric: Mood and affect normal Constitutional: Initial Vital Signs Temperature (C) 36.4 C 07/10/18 09:23 Heart Rate 72 07/10/18 09:23 Respiratory Rate 20 07/10/18 09:23 Blood Pressure 138/76 H 07/10/18 09:23 O2 Sat (%) 96 07/10/18 09:23 O2 Delivery Mode Room Air Allergies/Adverse Reactions: No Known Allergies Allergy (Verified 04/06/18 14:39) Home Medications: Medication Instructions Recorded Atorvastatin Calcium [Lipitor 20 40 mg PO HS 12/15/12 mg (*)] Bisoprolol Fumarate [Zebeta (*)] 2.5 mg PO HS 12/15/12 Magnesium Oxide [Magnesium Oxide 400 mg PO DAILY 12/15/12 400 mg (*)] Cholecalciferol Vit D3 [Vitamin D3 2,000 units PO DAILY 08/20/17 2000 units tab (OTC)] Eszopiclone [Lunesta] 1 - 2 mg PO HS PRN 08/20/17 Vardenafil HCl [Levitra] 20 mg PO DAILY PRN 08/20/17 metFORMIN SR [Glucophage XR 500 mg 500 mg PO DAILY18 08/20/17 (*)] Aspirin EC [Aspirin EC 81 mg (*)] 81 mg PO DAILY 03/20/18 Lisinopril [Zestril 5 mg (*)] 5 mg PO DAILY 04/01/18 Clindamycin HCl [Clindamycin] 300 mg PO TID #30 cap 07/10/18 Doxycycline Hyclate 07/10/18 Medical Decision Making ED Course/Re-evaluation: This patient presents with gross hematuria. Hematocrit is 42 and coags are normal. Urinalysis reveals a persistent UTI. Urine culture was reviewed and reveals Staph epidermidis, sensitive to tetracycline and clindamycin. I will switch his antibiotic to clindamycin. A repeat urine culture was sent. Per pt , urine is clearing somewhat (and decreased frequency of hematuria) during ED obs. Consulted rocio Calhoun f/u in office. - Data Points Laboratory Results: Laboratory Results 07/10/18 11:05 Microbiology Results: MICROBIOLOGY 07/10/18 09:35 Urine,Clean Catch Urine Culture - Preliminary Departure - Departure Disposition: Home, Routine, Self-Care Clinical Impression: Urinary tract infection, Gross hematuria Condition: Good Instructions: Urinary Tract Infection in Men (ED), Hematuria (ED) Additional Instructions: Return for worsening symptoms or any concerns. Stop taking doxycycline. Start clindamycin today. Referrals: Sandee Cash MD [Primary Care Provider] - As per Instructions Heidy Figueroa MD [Medical Doctor] - As per Instructions (Call Wednesday morning to make an appointment. ) Prescriptions: Clindamycin HCl [Clindamycin] 300 mg PO TID #30 cap
[2018-07-10 11:16] LABS: PLATELET COUNT 239 10^3/uL (150-400)
[2018-07-10 11:24] LABS: INR 0.96 (0.83-1.16); PROTIME(PATIENT) 12.4 SEC (12.0-15.0)
[2018-07-10 12:28] VITALS: BP 117/68
== END 2018-07-10 12:30 | disposition home or self-care (01) ==
DX: N39.0 Urinary tract infection, site not specified (principal); D09.0 Carcinoma in situ of bladder